=== PATIENT | female | born 1950 | race Caucasian/White ===

== ENCOUNTER → 2016-12-06 | Outpatient (CLI) | payer BC ==
[2015-12-15 11:00] VITALS: BP 120/61
[~2016-12-06] MED LIST: ASPI-630 PO; ATOR10TA60 PO; ATOR40TA59 PO; CIPR250T30 PO; DICY20TA3 PO; DONE5TAB7 PO; ESOM20CA PO; FURO-69 PO; HYDR-2766 PO; LEVO50TA5 PO; LISI-338 PO; LORA10TA68 PO; OMEP20TA8 PO; OXYC60TA7 PO; OXYC80TA16 PO; PREG50CA PO; SERT25TA PO; TOPI25TA7 PO; TROS20TA2 PO; VENTOLIN HFA18 GM INH; hydrocodone 10/325
--- NOTE | 2016-12-06 12:16 | KCIC ---
Bone mineral density exam History: Postmenopausal, hysterectomy, takes thyroid medication Comparison: None Findings: Bone mineral density examination utilizing DEXA was performed. Left hip bone mineral density of 0.886 g/cm2 corresponds with a T score -0.5, Z score 1.0. The bone mineral density of the lumbar spine was 1.138 g/cm2 which corresponds with a T-score of 0.8. The age matched Z-score is 2.8 . By World Congress on Osteoporosis criteria, a T score of 0 to-1 SD is considered to be within normal limits. A T score of -1 to -2.5 SD is considered osteopenia. A T score less than -2.5 SD is considered osteoporosis Impression: 1. There is normal bone density of the lumbar spine and the left hip. Electronically signed by: Dereck Barajas MD (12/06/2016 12:12 PM) [facility]
--- NOTE | 2016-12-07 08:27 | RAD ---
DATE: 12/07/2016 EXAM: MAMMO OLEKSANDR SCREENING BILATERAL HISTORY: 66-year-old female for routine screening. COMPARISON: Prior mammogram from 2015, 2014. This study was interpreted with the benefit of Computerized Aided Detection (CAD). FINDINGS: Breast Density: SCATTERED The breast parenchyma shows scattered fibroglandular densities. Breast parenchyma level B. There is an area of developing asymmetry in the anterior third of the right breast centrally approximately 3.5 to 4 cm from the nipple . No suspicious calcifications. Nipples and skin are within normal limits. Left breast show no abnormality. IMPRESSION: Small area of developing asymmetry in the anterior central right breast. This most likely represents overlapping fibroglandular tissue. However, spot compression views are recommended for further evaluation. BI-RADS CATEGORY: 0 INCOMPLETE: NEED ADDITIONAL IMAGING EVAULATION AND/OR PRIOR MAMMOGRAMS FOR COMPARISON RECOMMENDED FOLLOW-UP: ADD ADDITIONAL IMAGING PQRS compliance statement: Patient information was entered into a reminder system with a target due date for the next mammogram. Mammography is a sensitive method for finding small breast cancers, but it does not detect them all and is not a substitute for careful clinical examination. A negative mammogram does not negate a clinically suspicious finding and should not result in delay in biopsying a clinically suspicious abnormality. "Our facility is accredited by the [employer] Mammography Program."
== END | disposition home or self-care (01) ==
LOC: KCIC MAMMO 10:49
PROVIDERS: ATTEND Family Medicine
DX: Z12.31 Encounter for screening mammogram for malignant neoplasm of breast (principal); Z78.0 Asymptomatic menopausal state; Z90.710 Acquired absence of both cervix and uterus
CPT/HCPCS: 77063; 77080; G0202; 77067

== ENCOUNTER → 2016-12-17 | Outpatient (CLI) | payer BC ==
[2015-12-15 11:00] VITALS: BP 120/61
--- NOTE | 2016-12-17 14:38 | RAD ---
DATE: 12/17/2016 EXAM: DIGITAL DIAGNOSTIC RT HISTORY: Suspicious screening study COMPARISON: 12/06/2016 This study was interpreted with the benefit of Computerized Aided Detection (CAD). The breast parenchyma shows scattered fibroglandular densities. Breast parenchyma level B. FINDINGS: Additional spot compression views of the right breast were obtained in the retroareolar region and correlated with the screening images. There are patchy fibroglandular type shadows. No nodule or suspicious breast density is currently seen. IMPRESSION: Stable mammograms without evidence of malignancy. Routine yearly mammographic follow-up is suggested. BI-RADS CATEGORY: 2 BENIGN FINDING(S) RECOMMENDED FOLLOW-UP: 12M 12 MONTH FOLLOW-UP PQRS compliance statement: Patient information was entered into a reminder system with a target due date for the next mammogram. Mammography is a sensitive method for finding small breast cancers, but it does not detect them all and is not a substitute for careful clinical examination. A negative mammogram does not negate a clinically suspicious finding and should not result in delay in biopsying a clinically suspicious abnormality. "Our facility is accredited by the [employer] Mammography Program."
== END | disposition home or self-care (01) ==
LOC: KCIC MAMMO 13:50
PROVIDERS: ATTEND Family Medicine
DX: R92.8 Other abnormal and inconclusive findings on diagnostic imaging of breast (principal)
CPT/HCPCS: G0206; 77065

== ENCOUNTER 2017-03-06 20:19 | Emergency (ER) | payer BC ==
[~2017-03-06] VITALS: Ht 167.6 cm; Wt 74.8 kg
[2017-03-06] MEDS ORDERED: IV NORMAL SALINE 1000ML BAG 1,000 ML IV ONE (20:30)
[2017-03-06 20:50] LABS: BASO # 0.1 x10^3/uL (0.0-0.2); BASO % 1 % (0-3); EOS % 5 % (0-3); HEMATOCRIT 33.6 % (36.0-47.0); HEMOGLOBIN 11.1 g/dL (12.0-15.5); LYMPH # 2.2 x10^3/uL (1.0-4.8); LYMPH % 29 % (24-48); MEAN CORPUSCULAR HEMOGLOBIN 28 pg (25-35); MEAN CORPUSCULAR HGB CONC 33 g/dL (31-37); MEAN CORPUSCULAR VOLUME 83 fL (79-100); MONO % 9 % (0-9); NEUT % 56 % (31-73); PLATELET COUNT 246 x10^3/uL (140-400); RED BLOOD COUNT 4.04 x10^6/uL (3.50-5.40); RED CELL DISTRIBUTION WIDTH 15.5 % (11.5-14.5); WHITE BLOOD COUNT 7.5 x10^3/uL (4.0-11.0)
[2017-03-06] MEDS ORDERED: IV NORMAL SALINE 500ML BAG 500 ML IV ONE (21:00)
[2017-03-06 21:03] LABS: ALBUMIN 3.9 g/dL (3.4-5.0); ALBUMIN/GLOBULIN RATIO 1.1 (1.0-1.7); CALCIUM 8.9 mg/dL (8.5-10.1); CREATININE 1.3 mg/dL (0.6-1.0); GFR 40.7; MAGNESIUM 1.7 mg/dL (1.8-2.4); TOTAL BILIRUBIN 0.2 mg/dL (0.2-1.0); TOTAL PROTEIN 7.3 g/dL (6.4-8.2)
[2017-03-06 21:04] LABS: POTASSIUM 2.9 mmol/L (3.5-5.1)
--- NOTE | 2017-03-06 21:26 | RAD ---
CT HEAD WO CONTRAST dated 03/06/2017 8:58 PM Indication: Pain, recent fallpt fell and hit head on dresser
hx of dementia. Comparison: 12/13/2015 Technique: Contiguous axial imaging the head was performed from skull base to vertex. One or more of the following individualized dose reduction techniques were utilized for this examination: 1. Automated exposure control 2. Adjustment of the mA and/or kV according to patient size 3. Use of iterative reconstruction technique Findings: Ventricles and sulci are mildly prominent for age. No midline shift or mass effect. Brain parenchyma is of normal attenuation. No hemorrhage or extra-axial collection. Posterior fossa and brainstem unremarkable. Visualized paranasal sinuses and mastoid air cells are clear. No apparent calvarial abnormality. IMPRESSION: 1. No evidence of acute intracranial hemorrhage or mass. 2. Mild atrophy for age. Electronically signed by: Alvin Crews MD (03/06/2017 9:22 PM) [facility]
[2017-03-06] MEDS ORDERED: POTASSIUM CHLORIDE 20 MEQ TABLET.ER. PO ONE (21:30)
[2017-03-06] MEDS ORDERED: MAGNESIUM OXIDE 400 MG TABLET PO ONE (21:30)
--- NOTE | 2017-03-06 21:35 | PHYS DOC ---
Past Medical History Past Medical History: Constipation, Dementia, Depression, GERD, UTI, Other Additional Past Medical Histor: chronic pain Past Surgical History: Hysterectomy Additional Past Surgical Histo: carpal tunnel; hand Alcohol Use: None Drug Use: None Adult General Chief Complaint Chief Complaint: SYNCOPE HPI HPI Patient is a 66 year old female presenting to the emergency department for evaluation of head trauma and syncope episode sustained shortly prior to arrival. He was laying down taking a nap in her recliner and then sat forward and pressed the power button on her remote control and while she was waiting for the TV to turn on she fell asleep again and fell forward striking her head on the corner of a desk. She has a small laceration to the top of her head and she says that her tetanus status is up-to-date. Any headache and left wrist pain however both the symptoms have resolved and she is feeling back to normal now. Patient denies any weakness dizziness unilateral numbness or tingling before or after the syncopal episode and she denies any chest pain or shortness of breath. She is in no obvious distress with normal vital signs. Review of Systems Review of Systems Constitutional: Denies fever or chills [] Eyes: Denies change in visual acuity, redness, or eye pain [] HENT: Denies nasal congestion or sore throat [] Respiratory: Denies cough or shortness of breath [] Cardiovascular: No additional information not addressed in HPI [] GI: Denies abdominal pain, nausea, vomiting, bloody stools or diarrhea [] : Denies dysuria or hematuria [] Musculoskeletal: Denies back pain or joint pain [] Integument:+ laceration Neurologic: Denies headache, focal weakness or sensory changes [] Current Medications Current Medications Current Medications Medications (Trade) Dose Ordered Sig/Baldemar Start Time Stop Time Status Last Admin Dose Admin Magnesium Oxide (Magnesium Oxide) 800 mg 1X ONCE 03/06/17 21:30 03/06/17 21:31 DC 03/06/17 21:16 800 MG Potassium Chloride (Klor-Con) 40 meq 1X ONCE 03/06/17 21:30 03/06/17 21:31 DC 03/06/17 21:16 40 MEQ Sodium Chloride 500 ml @ 500 mls/hr 1X ONCE 03/06/17 21:00 03/06/17 21:59 DC 03/06/17 20:49 500 MLS/HR Allergies Allergies Allergies Coded Allergies Type Severity Reaction Last Updated Verified Iodinated Contrast- Oral and IV Dye Allergy Intermediate 12/13/15 Yes Sulfa (Sulfonamide Antibiotics) Allergy Intermediate 04/29/14 Yes codeine Allergy Intermediate 04/29/14 Yes morphine Allergy Intermediate 04/29/14 Yes Physical Exam Physical Exam Constitutional: Well developed, well nourished, no acute distress, non-toxic appearance. [] HENT: Normocephalic, 1 cm laceration to the top of her head, bilateral external ears normal, oropharynx moist, no oral exudates, nose normal. [] Eyes: PERRLA, EOMI, conjunctiva normal, no discharge. [] Neck: Normal range of motion, no tenderness, supple, no stridor. [] Cardiovascular:Heart rate regular rhythm, no murmur [] Lungs & Thorax: Bilateral breath sounds clear to auscultation [] Abdomen: Bowel sounds normal, soft, no tenderness, no masses, no pulsatile masses. [] Skin: Warm, dry, no erythema, no rash. [] Back: No tenderness, no CVA tenderness. [] Extremities: No tenderness, no cyanosis, no clubbing, ROM intact, no edema. [] Neurologic: Alert and oriented X 3, normal motor function, normal sensory function, no focal deficits noted. [] Current Patient Data Vital Signs Vital Signs Date Time Temp Pulse Resp B/P (MAP) Pulse Ox O2 Delivery O2 Flow Rate FiO2 03/06/17 21:21 74 22 122/59 (80) 98 Room Air 03/06/17 20:20 98.2 98.2 Lab Values Laboratory Tests Test 03/06/17 20:30 03/06/17 21:50 White Blood Count 7.5 x10^3/uL (4.0-11.0) Red Blood Count 4.04 x10^6/uL (3.50-5.40) Hemoglobin 11.1 g/dL (12.0-15.5) L Hematocrit 33.6 % (36.0-47.0) L Mean Corpuscular Volume 83 fL (79-100) Mean Corpuscular Hemoglobin 28 pg (25-35) Mean Corpuscular Hemoglobin Concent 33 g/dL (31-37) Red Cell Distribution Width 15.5 % (11.5-14.5) H Platelet Count 246 x10^3/uL (140-400) Neutrophils (%) (Auto) 56 % (31-73) Lymphocytes (%) (Auto) 29 % (24-48) Monocytes (%) (Auto) 9 % (0-9) Eosinophils (%) (Auto) 5 % (0-3) H Basophils (%) (Auto) 1 % (0-3) Neutrophils # (Auto) 4.2 x10^3uL (1.8-7.7) Lymphocytes # (Auto) 2.2 x10^3/uL (1.0-4.8) Monocytes # (Auto) 0.7 x10^3/uL (0.0-1.1) Eosinophils # (Auto) 0.3 x10^3/uL (0.0-0.7) Basophils # (Auto) 0.1 x10^3/uL (0.0-0.2) Sodium Level 144 mmol/L (136-145) Potassium Level 2.9 mmol/L (3.5-5.1) *L Chloride Level 106 mmol/L (98-107) Carbon Dioxide Level 31 mmol/L (21-32) Anion Gap 7 (6-14) Blood Urea Nitrogen 18 mg/dL (7-20) Creatinine 1.3 mg/dL (0.6-1.0) H Estimated GFR (Cockcroft-Gault) 40.7 BUN/Creatinine Ratio 14 (6-20) Glucose Level 93 mg/dL (70-99) Calcium Level 8.9 mg/dL (8.5-10.1) Magnesium Level 1.7 mg/dL (1.8-2.4) L Total Bilirubin 0.2 mg/dL (0.2-1.0) Aspartate Amino Transferase (AST) 16 U/L (15-37) Alanine Aminotransferase (ALT) 18 U/L (14-59) Alkaline Phosphatase 38 U/L (46-116) L Total Protein 7.3 g/dL (6.4-8.2) Albumin 3.9 g/dL (3.4-5.0) Albumin/Globulin Ratio 1.1 (1.0-1.7) Urine Collection Type U cath Urine Color Straw Urine Clarity Clear Urine pH 6.0 Urine Specific [place] <=1.005 Urine Protein Negative mg/dL (NEG-TRACE) Urine Glucose (UA) Negative mg/dL (NEG) Urine Ketones (Stick) Negative mg/dL (NEG) Urine Blood Negative (NEG) Urine Nitrite Negative (NEG) Urine Bilirubin Negative (NEG) Urine Urobilinogen Dipstick 0.2 mg/dL (0.2 mg/dL) Urine Leukocyte Esterase Moderate (NEG) Urine RBC 0 /HPF (0-2) Urine WBC 1-4 /HPF (0-4) Urine Squamous Epithelial Cells Few /LPF Urine Transitional Epithelial Cells Occ /LPF Urine Bacteria Few /HPF (0-FEW) Laboratory Tests 03/06/17 20:30 Laboratory Tests 03/06/17 20:30 EKG EKG sinus rhythm at 74 beats per minutes with normal axis no obvious ST elevation or depression with frequent PVCs and borderline prolonged QTC at 478 ms Radiology/Procedures Radiology/Procedures CT HEAD WO CONTRAST dated 03/06/2017 8:58 PM Indication: Pain, recent fallpt fell and hit head on dresser
hx of dementia. Comparison: 12/13/2015 Technique: Contiguous axial imaging the head was performed from skull base to vertex. One or more of the following individualized dose reduction techniques were utilized for this examination: 1. Automated exposure control 2. Adjustment of the mA and/or kV according to patient size 3. Use of iterative reconstruction technique Findings: Ventricles and sulci are mildly prominent for age. No midline shift or mass effect. Brain parenchyma is of normal attenuation. No hemorrhage or extra-axial collection. Posterior fossa and brainstem unremarkable. Visualized paranasal sinuses and mastoid air cells are clear. No apparent calvarial abnormality. IMPRESSION: 1. No evidence of acute intracranial hemorrhage or mass. 2. Mild atrophy for age. Electronically signed by: Alvin Crews MD (03/06/2017 9:22 PM) [facility] DICTATED and SIGNED BY: ALVIN CREWS MD DATE: 03/06/172119 Impressions: Indication: [Scalp laceration] Procedure: The patient was placed in the appropriate position and anesthesia around the wound was not used]. The area was then cleansed. The laceration was closed with Dermabond Total repaired wound length: [TOTAL REPAIR LENGTH]. The patient tolerated the procedure well Complications: None Course & Med Decision Making Course & Med Decision Making Patient presenting to the emergency department for evaluation of a syncopal episode that occurred after she struck her head. Some frequent PVCs on EKG but she is essentially asymptomatic from this. Patient does have hypokalemia and hypomagnesemia that family attributes to her having diarrhea 2-3 days ago that has since resolved. He was encouraged to eat a better diet with more potassium and magnesium minute to drink plenty of fluids follow with PCP in 2-3 days and come back to the ED sooner with worsening pain weakness or other general concerns. Patient and daughter aware and agreeable with plan for discharge and verbalized understanding of the need for short-term follow-up and strict ED return precautions discussed and clear worsening pain shortness of breath syncope or other general concerns. Dragon Disclaimer Dragon Disclaimer This electronic medical record was generated, in whole or in part, using a voice recognition dictation system. Departure Departure Impression: Primary Impression: Scalp laceration Additional Impressions: CHI (closed head injury) Hypokalemia Hypomagnesemia Syncope Disposition: 01 HOME, SELF-CARE Condition: STABLE Referrals: PARUL VOSS (PCP) Patient Instructions: Laceration Care, Adult Problem Qualifiers Primary Impression: Scalp laceration Encounter type: initial encounter Qualified Codes: S01.01XA - Laceration without foreign body of scalp, initial encounter PARUL LOCKETT DO Mar 06, 2017 21:35
[2017-03-06 21:57] LABS: BILIRUBIN,URINE NEGATIVE (NEG); GLUCOSE,URINE NEGATIVE (NEG); NITRITE,URINE NEGATIVE (NEG); PROTEIN,URINE NEGATIVE (NEG-TRACE); UROBILINOGEN,URINE 0.2 mg/dL (0.2 mg/dL)
[2017-03-06 22:06] LABS: BACTERIA,URINE FEW /HPF (0-FEW); RBC,URINE 0 /HPF (0-2); SQUAMOUS EPITHELIAL CELL,UR FEW /LPF
[2017-03-06 22:46] VITALS: BP 127/78
--- NOTE | 2017-03-07 09:10 | EKG ---
[facility] [address] [place] [address] Test Date: 2017-03-06 Test Time: 20:33:14 Pat Name: ROSALES SAUNDERS Department: Room: Gender: F Insurance Counsel: KIKE : 1950 Requested By: PARUL LOCKETT Order Number: [id number] Reading MD: Measurements Intervals [place] Rate: 74 P: 5 WY: 146 QRS: 41 QRSD: 106 T: 48 QT: 430 QTc: 478 Interpretive Statements SINUS RHYTHM ATRIAL PREMATURE COMPLEX(ES) PROLONGED QT NO SPECIFIC ECG ABNORMALITIES RI6.01 No previous ECG available for comparison
== END 2017-03-06 22:47 | disposition home or self-care (01) ==
LOC: ER 20:19
DX: S01.01XA Laceration without foreign body of scalp, initial encounter (principal); E87.6 Hypokalemia; E83.42 Hypomagnesemia; R55 Syncope and collapse; M25.532 Pain in left wrist; F03.90 Unspecified dementia, unspecified severity, without behavioral disturbance, psychotic disturbance, mood disturbance, and anxiety; F32.9 Major depressive disorder, single episode, unspecified; K21.9 Gastro-esophageal reflux disease without esophagitis; G89.29 Other chronic pain; Z90.710 Acquired absence of both cervix and uterus; Z87.440 Personal history of urinary (tract) infections; Z88.5 Allergy status to narcotic agent; Z88.2 Allergy status to sulfonamides; Z91.041 Radiographic dye allergy status
CPT/HCPCS: 12001; 36415; 70450; 80053; 81001; 83735; 85025; 87086; 93005; 96360; 99285; J7040

== ENCOUNTER 2019-01-05 22:09 | Emergency (ER) | payer BC ==
[~2019-01-05] VITALS: Ht 160 cm; Wt 72.1 kg
[~2019-01-05 22:09] MED LIST changes: -HYDR-2766 PO; +HYDR-2769 PO
--- NOTE | 2019-01-05 22:47 | PHYS DOC ---
Past Medical History Past Medical History: COPD, Dementia Additional Past Medical Histor: chronic pain Past Surgical History: Hysterectomy Additional Past Surgical Histo: carpal tunnel; hand Alcohol Use: None Drug Use: None Adult General Chief Complaint Chief Complaint: MECHANICAL FALL HPI HPI 68-year-old female presents to emergency Department with complaints of fall. Patient was in the bathroom and suddenly fell forward hitting her head. She complains of headache, neck pain, unknown loss of consciousness. She is on no blood thinning medications. Patient denies any chest pain, shortness of breath, nausea, vomiting, abdominal pain. Nothing makes her pain worse, nothing makes her pain better. Review of Systems Review of Systems Constitutional: Denies fever or chills [] Respiratory: Denies cough or shortness of breath [] Cardiovascular: No additional information not addressed in HPI [] GI: Denies abdominal pain, nausea, vomiting, bloody stools or diarrhea [] Musculoskeletal: Denies back pain or joint pain [] Neurologic: + headache, no focal weakness or sensory changes [] Endocrine: Denies polyuria or polydipsia [] All other systems were reviewed and found to be within normal limits, except as documented in this note. Allergies Allergies Allergies Coded Allergies Type Severity Reaction Last Updated Verified Iodinated Contrast- Oral and IV Dye Allergy Intermediate 12/13/15 Yes Sulfa (Sulfonamide Antibiotics) Allergy Intermediate 04/29/14 Yes codeine Allergy Intermediate 04/29/14 Yes morphine Allergy Intermediate 04/29/14 Yes Physical Exam Physical Exam Constitutional: Well developed, well nourished, no acute distress, non-toxic appearance. [] HENT: Normocephalic, atraumatic, bilateral external ears normal, oropharynx moist, no oral exudates, nose normal. [] Eyes: PERRLA, EOMI, conjunctiva normal, no discharge. [] Neck: Tender to palpation, currently in C Collar Cardiovascular:Heart rate regular rhythm, no murmur [] Lungs & Thorax: Bilateral breath sounds clear to auscultation [] Abdomen: Bowel sounds normal, soft, no tenderness, no masses, no pulsatile masses. [] Skin: Warm, dry, no erythema, no rash. [] Back: No tenderness, no CVA tenderness. [] Extremities: No tenderness,no edema. [] Neurologic: Alert and oriented X 3, no focal deficits noted. [] Psychologic: Affect normal, judgement normal, mood normal. [] Current Patient Data Vital Signs Vital Signs Date Time Temp Pulse Resp B/P (MAP) Pulse Ox O2 Delivery O2 Flow Rate FiO2 01/05/19 22:20 97.8 60 19 139/80 (99) 99 Room Air 97.8 Lab Values Laboratory Tests Test 01/05/19 23:00 Sodium Level 144 mmol/L (136-145) Potassium Level 3.5 mmol/L (3.5-5.1) Chloride Level 109 mmol/L (98-107) H Carbon Dioxide Level 28 mmol/L (21-32) Anion Gap 7 (6-14) Blood Urea Nitrogen 19 mg/dL (7-20) Creatinine 1.1 mg/dL (0.6-1.0) H Estimated GFR (Cockcroft-Gault) 49.1 Glucose Level 95 mg/dL (70-99) Calcium Level 8.8 mg/dL (8.5-10.1) Laboratory Tests 01/05/19 23:00 EKG EKG [] Radiology/Procedures Radiology/Procedures [facility] [address] [place] [address] IMAGING REPORT Signed PATIENT: ROSALES SAUNDERS ACCOUNT: [id number] : 1950 LOCATION: ER AGE: 68 SEX: F EXAM STATUS: REG ER ORD. PHYSICIAN: SEAMUS WU MD REASON: fall, head injury, unknown LOC, neck pain (posterior) PROCEDURE: CT HEAD AND CERVICAL SPINE WO RS Compliance statement: One or more of the following individualized dose reduction techniques were utilized for this examination: 1. Automated exposure control. 2. Adjustment of the mA and/or kV according to patient size. 3. Use of iterative reconstruction technique. Indication:Fall. Head injury. . TECHNIQUE: CT head without IV contrast COMPARISON: 03/06/2017. FINDINGS: No pathologic extra-axial or intra-axial fluid collection. The ventricles and basal cisterns are within normal limits. No acute intracranial bleed. No focal loss of lackey-white differentiation. No scalp hematoma. Visualized orbits are within normal limits. Opacification of the right sphenoid sinus. No acute calvarial fracture. IMPRESSION: No acute intracranial bleed or calvarial fracture. Right sphenoid sinus disease. Indication:Fall. Neck pain. TECHNIQUE: CT of the cervical spine without IV contrast with multiplanar reformats. COMPARISON:None FINDINGS: Cervical spine is in normal anatomic alignment. Atlantoaxial joint interval is preserved. No compression deformity. Facet joints are in normal anatomic alignment with multilevel mild facet arthropathy. No acute fractures. Noncontrast appearance of the visualized neck soft tissue is within normal limits. Clear lung apices. IMPRESSION: No acute fractures. Electronically signed by: Nikko Bee DO (01/05/2019 11:22 PM) [facility] DICTATED and SIGNED BY: NIKKO BEE DO DATE: 01/05/192321 [] Course & Med Decision Making Course & Med Decision Making Pertinent Labs and Imaging studies reviewed. (See chart for details) []68-year-old female presents to emergency Department with complaints of fall. Patient was in the bathroom and fell forward hitting her head. She complains of headache, neck pain, unknown loss of consciousness. She is on no blood thinning medications. Patient denies any chest pain, shortness of breath, nausea, vomiting, abdominal pain. Nothing makes her pain worse, nothing makes her pain better. CT of head, neck revealed no evidence of acute fracture or bleed. Plan for discharge home. Recommend follow-up with her primary care physician as needed for follow-up. Patient denies any syncope or dizziness prior to fall. Dragon Disclaimer Dragon Disclaimer This electronic medical record was generated, in whole or in part, using a voice recognition dictation system. Departure Departure Impression: Primary Impression: Fall Additional Impression: Head injury Disposition: 01 HOME, SELF-CARE Condition: STABLE Referrals: PARUL VOSS (PCP) Patient Instructions: Fall Prevention and Home Safety, [id number], Head Injury, Adult, [id number] Additional Instructions: Recommend follow up with PCP 3 - 5 days Return to the ER with worsening symptoms, intractable pain, fever, altered mental status Tylenol/Motrin as needed for pain CT the head and neck without evidence of acute fracture or bleed Problem Qualifiers Primary Impression: Fall Encounter type: initial encounter Qualified Codes: W19.XXXA - Unspecified fall, initial encounter Additional Impression: Head injury Encounter type: initial encounter Qualified Codes: S09.90XA - Unspecified injury of head, initial encounter SEAMUS WU MD Jan 05, 2019 22:46
[2019-01-05 23:17] LABS: CALCIUM 8.8 mg/dL (8.5-10.1); CREATININE 1.1 mg/dL (0.6-1.0); GFR 49.1; POTASSIUM 3.5 mmol/L (3.5-5.1)
--- NOTE | 2019-01-05 23:25 | RAD ---
PQRS Compliance statement: One or more of the following individualized dose reduction techniques were utilized for this examination: 1. Automated exposure control. 2. Adjustment of the mA and/or kV according to patient size. 3. Use of iterative reconstruction technique. Indication:Fall. Head injury. . TECHNIQUE: CT head without IV contrast COMPARISON: 03/06/2017. FINDINGS: No pathologic extra-axial or intra-axial fluid collection. The ventricles and basal cisterns are within normal limits. No acute intracranial bleed. No focal loss of lackey-white differentiation. No scalp hematoma. Visualized orbits are within normal limits. Opacification of the right sphenoid sinus. No acute calvarial fracture. IMPRESSION: No acute intracranial bleed or calvarial fracture. Right sphenoid sinus disease. Indication:Fall. Neck pain. TECHNIQUE: CT of the cervical spine without IV contrast with multiplanar reformats. COMPARISON:None FINDINGS: Cervical spine is in normal anatomic alignment. Atlantoaxial joint interval is preserved. No compression deformity. Facet joints are in normal anatomic alignment with multilevel mild facet arthropathy. No acute fractures. Noncontrast appearance of the visualized neck soft tissue is within normal limits. Clear lung apices. IMPRESSION: No acute fractures. Electronically signed by: Nikko Bee DO (01/05/2019 11:22 PM) [facility]
[2019-01-05 23:45] VITALS: BP 116/64
== END 2019-01-05 23:53 | disposition home or self-care (01) ==
LOC: ER 22:09
DX: S09.8XXA Other specified injuries of head, initial encounter (principal); M54.2 Cervicalgia; G89.29 Other chronic pain; J44.9 Chronic obstructive pulmonary disease, unspecified; Z90.710 Acquired absence of both cervix and uterus; Z88.5 Allergy status to narcotic agent; Z88.2 Allergy status to sulfonamides; Z91.041 Radiographic dye allergy status; W18.39XA Other fall on same level, initial encounter; Y93.89 Activity, other specified; Y92.002 Bathroom of unspecified non-institutional (private) residence as the place of occurrence of the external cause; Y99.8 Other external cause status
CPT/HCPCS: 36415; 70450; 72125; 80048; 99285-25